=== PATIENT | female | born 2000 | race Caucasian/White ===

== ENCOUNTER 2021-09-16 16:58 | Emergency (ER) | payer BC ==
[2021-09-16 17:17] VITALS: BP 183/86; PULSE 91; O2SAT 98
[2021-09-16 18:17] LABS: Appearance SLIGHTLY CLOUDY (CLEAR); Bilirubin SMALL (NEGATIVE); Glucose NEGATIVE (NEGATIVE); Ketones NEGATIVE (NEGATIVE); Nitrite NEGATIVE (NEGATIVE); Ph 6.5 (5-6); Protein,Urine Dip 30 (Negative); RBC LARGE Ery/ul (0-5); Specific Gravity >=1.030 (1.005-1.025); Urobilinogen 0.2 mg/dL (0-1)
[2021-09-16 18:24] LABS: Epithelial Cells RARE /HPF (FEW); Mucus SLIGHT /HPF (NEGATIVE); RBC >101 /HPF (0-2)
[2021-09-16 18:25] LABS: Urine Cultured Indicated? YES
[2021-09-16] MEDS ORDERED: PROVERA10 MG PO STA (18:31)
[2021-09-16 18:47] LABS: Absolute Neutrophil Ct (ANC) 8.63 x10^3/uL (1.4-6.9); Basophil (Absolute #) 0.04 x10^3/uL (0-0.4); Eosinophil % 2.2 % (0.00-5.0); Eosinophil (Absolute #) 0.27 x10^3/uL (0-0.5); Hematocrit 37.9 % (35-47); Hemoglobin 11.8 g/dL (12.0-16.0); Lymphocyte (Absolute #) 2.44 x10^3/uL (1.0-4.6); Lymphocytes % 19.9 % (24.0-44.0); Mean Cell Volume 87.5 fL (78-100); Mean Corpuscular Hemoglobin 27.3 pg (26-32); Mean Corpuscular Hgb Concent. 31.1 g/dL (32-36); Mean Platelet Volume 8.6 fL (7.5-11.0); Monocyte (Absolute #) 0.83 x10^3/uL (0.0-1.3); Monocytes % 6.8 % (0.0-12.0); Neutrophil % 70.5 % (36.0-66.0); Platelet Count 342 x10^3/uL (150-450); Red Blood Count 4.33 x10^6/uL (4.1-5.4); White Blood Count 12.3 x10^3/uL (4.0-10.5)
--- NOTE | 2021-09-16 18:47 | ERPHSYRPT ---
- History of Present Illness Time Seen by Provider: 09/16/21 17:03 Source: patient Exam Limitations: no limitations Patient Subjective Stated Complaint: Vaginal bleeding Triage Nursing Assessment: Patient ambulated back to ED and transferred self to bed. Patient A+O X 3. Patient's skin pink, warm and dry. Patient complains of vaginal bleeding for the past month. Patient saw Dr. Regalado on Sunday and had labs drawn and is scheduled for a pelvic ultrasound next sunday. Patient states her bleeding has gotten worse and she called Dr. Regalado's office and was instructed to come to ED for eval. Patient states she has occasional pelvic pain, but denies currently. Physician History: 21-year-old female presented to the ER with chief complaint of worsening vaginal bleeding. Patient reports having irregular cycle in the past and for almost a month she has been bleeding and now has noticed some clots. She also complains of pelvic cramping. She was seen outpatient and has been started on control pills couple of days ago but it does not seem helping. Denies any chest pain palpitations shortness of breath, dizzy or lightheaded feeling. Timing/Duration: week(s), gradual onset, worse Quality: cramping Sexual intercourse history: non-contributory Modifying Factors: Improves With: nothing Associated Symptoms: denies symptoms Allergies/Adverse Reactions: No Known Drug Allergies Allergy (Unverified 09/16/21 17:09) Hx Influenza Vaccination/Date Given: No Hx Pneumococcal Vaccination/Date Given: No Travel Risk - International Travel Have you traveled outside of the country in past 3 weeks: No - Coronavirus Screening Are you exhibiting any of the following symptoms?: No Close contact with a COVID-19 positive Pt in past 14-21 Days: No - Vaccine Status Have you recieved a Covid-19 vaccination: Yes [employer]: [employer] - Vaccination Dates Date of 2cond Vaccination (if applicable): June 2021 - Review of Systems Constitutional: No Symptoms Ears, Nose, & Throat: No Symptoms Respiratory: No Symptoms Cardiac: No Symptoms Abdominal/Gastrointestinal: No Symptoms Genitourinary Symptoms: Vaginal Bleeding Musculoskeletal: No Symptoms Skin: No Symptoms Neurological: No Symptoms Hematologic/Lymphatic: No Symptoms Immunological/Allergic: No Symptoms - Past Medical History Pertinent Past Medical History: No Neurological History: No Pertinent History ENT History: No Pertinent History Cardiac History: No Pertinent History Respiratory History: No Pertinent History Endocrine Medical History: No Pertinent History Musculoskeletal History: No Pertinent History GI Medical History: No Pertinent History History: No Pertinent History Psycho-Social History: No Pertinent History Female Reproductive Disorders: No Pertinent History - Past Surgical History Past Surgical History: No Neuro Surgical History: No Pertinent History Cardiac: No Pertinent History Respiratory: No Pertinent History Gastrointestinal: No Pertinent History Genitourinary: No Pertinent History Musculoskeletal: No Pertinent History Female Surgical History: No Pertinent History - Social History Smoking Status: Current every day smoker How long have you smoked: years Exposure to second hand smoke: Yes Drug Use: none Patient Lives Alone: No - Female History Hx Last Menstrual Period: July 04, 2021 Hx Now: No - Nursing Vital Signs Nursing Vital Signs: Initial Vital Signs Temperature 96.9 F 09/16/21 17:10 Pulse Rate 91 H 09/16/21 17:10 Respiratory Rate 18 09/16/21 17:10 Blood Pressure 183/86 09/16/21 17:10 O2 Sat by Pulse Oximetry 98 09/16/21 17:10 Pain Scale Pain Intensity 0 - Physical Exam General Appearance: no apparent distress, alert Eye Exam: PERRL/EOMI Ears, Nose, Throat Exam: normal ENT inspection Neck Exam: normal inspection, full range of motion Respiratory Exam: normal breath sounds, lungs clear Cardiovascular Exam: regular rate/rhythm, normal heart sounds Gastrointestinal/Abdomen Exam: soft, normal bowel sounds, No tenderness Pelvic Exam: not done Back Exam: normal inspection, normal range of motion Extremity Exam: normal inspection, normal range of motion Neurologic Exam: alert, oriented x 3, cooperative Skin Exam: normal color SpO2 Interpretation: normal SpO2: 98 O2 Delivery: Room Air Ordered Tests: Active Orders 24 hr Category Date Time Status CBC W DIFF Stat Lab 09/16/21 18:30 Completed CULTURE,URINE Stat Lab 09/16/21 17:47 Received HCG,QUALITATIVE URINE Stat Lab 09/16/21 18:08 Completed UA W/RFX CULTURE Stat Lab 09/16/21 17:47 Results Medication Summary Discontinued Medications Generic Name Dose Route Start Last Admin Trade Name Freq PRN Reason Stop Dose Admin Medroxyprogesterone Acetate 10 mg 09/16/21 18:31 Medroxyprogesterone Acet 10 Mg Tablet PO 09/16/21 18:32 ONCE STA Lab/Rad Data: Laboratory Result Diagrams 06/03/22 18:30 Laboratory Results 09/16/21 09/16/21 09/16/21 Range/Units 18:30 18:08 17:47 WBC 12.3 H (4.0-10.5) x10^3/uL RBC 4.33 (4.1-5.4) x10^6/uL Hgb 11.8 L (12.0-16.0) g/dL Hct 37.9 (35-47) % MCV 87.5 (78-100) fL MCH 27.3 (26-32) pg MCHC 31.1 L (32-36) g/dL RDW 14.0 (11.5-14.0) % Plt Count 342 (150-450) x10^3/uL MPV 8.6 (7.5-11.0) fL Gran % 70.5 H (36.0-66.0) % Immature Gran % (Auto) 0.3 (0.00-0.4) % Nucleat RBC Rel Count 0.0 (0.00-0.1) % Eos # (Auto) 0.27 (0-0.5) x10^3/uL Immature Gran # (Auto) 0.04 H (0.00-0.03) x10^3u/L Absolute Lymphs (auto) 2.44 (1.0-4.6) x10^3/uL Absolute Monos (auto) 0.83 (0.0-1.3) x10^3/uL Absolute Nucleated RBC 0.00 (0.00-0.01) x10^3u/L Lymphocytes % 19.9 L (24.0-44.0) % Monocytes % 6.8 (0.0-12.0) % Eosinophils % 2.2 (0.00-5.0) % Basophils % 0.3 (0.0-0.4) % Absolute Granulocytes 8.63 H (1.4-6.9) x10^3/uL Basophils # 0.04 (0-0.4) x10^3/uL Urinalys Dipstick Clnc Pending Urine Color RED (YELLOW) Urine Appearance SLIGHTLY CLOUDY (CLEAR) Urine pH 6.5 (5-6) Ur Specific [place] >=1.030 (1.005-1.025) POC Urine Protein Conf 30 (Negative) Urine Ketones NEGATIVE (NEGATIVE) Urine Nitrite NEGATIVE (NEGATIVE) Urine Bilirubin SMALL (NEGATIVE) Urine Urobilinogen 0.2 (0-1) mg/dL Urine Leukocytes NEGATIVE (NEGATIVE) Urine WBC (Auto) NONE (0-5) /HPF Urine RBC (Auto) >101 (0-2) /HPF U Epithel Cells (Auto) RARE (FEW) /HPF Urine Bacteria (Auto) NONE (NEGATIVE) /HPF Urine RBC LARGE (0-5) Kyler/ul Urine Mucus (Auto) SLIGHT (NEGATIVE) /HPF Ur Culture Indicated? YES Urine Glucose NEGATIVE (NEGATIVE) mg/dL Urine HCG, Qual NEGATIVE (Negative) - Progress Progress: improved Air Movement: good Progress Note: 09/16/21 18:45 Patient is stable H&H. Has stable vitals. Started on Provera and outpatient follow-up recommended. Blood Culture(s) Obtained: No Antibiotics given: No Discussed with : Saqib Counseled pt/family regarding: lab results, diagnosis, need for follow-up - Departure Departure Disposition: Home Clinical Impression: Menorrhagia Condition: Stable Critical Care Time: No Referrals: ADAN REGALADO MD [Primary Care Provider] - Follow Up with PCP/3 days Instructions: Heavy Periods (DC) Additional Instructions: Drink plenty of fluids. Take Tylenol/ibuprofen as needed. Follow-up with your primary care for reevaluation. Keep appointment for ultrasound. Return to ER for worsening bleeding or if feeling dizzy lightheaded, chest pain palpitations or shortness of breath. Prescriptions: Medroxyprogesterone Acet [[id number] mg] 10 mg PO DAILY #7 tablet
[2021-09-16 19:46] LABS: Dipstick done @ ? MAIN LAB
== END 2021-09-16 19:13 | disposition home or self-care (01) ==
LOC: ED 16:58
DX: N92.0 Excessive and frequent menstruation with regular cycle (principal); R10.2 Pelvic and perineal pain; Z72.0 Tobacco use
CPT/HCPCS: 36415; 81015; 81025; 85025; 87086; 99283; A9270-GY